=== PATIENT | male | born 1960 | race Caucasian/White ===

== ENCOUNTER 2017-02-18 09:10 | Inpatient (IN) | payer OTHER ==
--- NOTE | ~2017-02-18 | CT4 ---
[facility]. [facility] A Service of [facility] RADIOLOGY TEXT RESULTS PATIENT: DIANA OAKLEY LOCATION: [facility] 230-01 : [birth year] UNIT #: [id number] AGE: [address]: Danilo Mccray SEX: M ORDER DR: [id number] [address] [address] [id number] E MR#: [id number] Acc #: [id number] NAME: DIANA OAKLEY : 1960 SEX: M STUDY DATE/TIME: 02/18/2017 10:31 UNIT: SED ROOM: STUDY DESCRIPTION: CT Abd and Pelv Wo Cont Attending Physician: Jose Crowell M.D. Ordering Physician: Jose Crowell M.D. Primary Care Physician: Sina Rees Jr., M.D. MEDICAL IMAGING REPORT This report is preliminary unless electronic signature is present. REVISED REPORT SEE ADDENDUM EXAM CT abdomen and pelvis without IV contrast COMPARISON None INDICATIONS 56-year-old male with right-sided abdominal pain in the upper and lower quadrants since yesterday. FINDINGS Axial CT imaging of the abdomen and pelvis was performed without IV contrast. Lack of IV contrast limits evaluation of adenopathy, vasculature, and viscera. Coronal and sagittal reformats were constructed. The CT exam was performed with one or more of the following radiation dose reduction techniques: automatic exposure control, adjustment of mA and/or kV according to patient size, and iterative reconstruction. Small fat-containing inguinal herniae bilaterally, left greater than right. Mild degenerative facet disease bilaterally L5-S1. There are bilateral pars defects at L5 with associated grade 1 anterolisthesis of L5 on S1 of approximately 3 mm. There is severe disc height loss at this level and there is also a small posterior disc protrusion at this level. Dependent atelectasis in both lower lobes. Minimal band-like atelectasis in the right middle lobe. No acute findings in the lower chest. Unenhanced liver, pancreas, spleen, adrenal glands, and kidneys are within STS. [facility] A Service of [facility] RADIOLOGY TEXT RESULTS PATIENT: DIANA OAKLEY LOCATION: [facility] 230-01 : 62 UNIT #: [id number] AGE: [address]: Danilo Mccray SEX: M ORDER DR: normal limits. No hydronephrosis or hydroureter. No renal or ureteral calculus. There is mild prominence of the urinary bladder wall diffusely. No adjacent inflammatory change. Normal appearance and size of the prostate gland. There is diffuse diverticulosis of the colon. There is a fairly long segment of fat stranding involving the right colon seen from the cecum to the hepatic flexure, where multiple diverticula are seen. There is fat stranding in the right pericolic gutter. Interestingly the appendix also appears to have diverticula. No evidence of acute appendicitis. No pneumoperitoneum. Cholelithiasis without evidence of acute cholecystitis. Normal biliary caliber. No adenopathy. Normal caliber of the abdominal aorta. IMPRESSION 1. There is a long segment indistinctness and adjacent fat stranding involving the right colon. Multiple diverticula are seen in this location. This is most consistent with acute relatively long segment diverticulitis. Other colitis could give similar appearance. 2 Interesting there are multiple diverticula of the appendix without evidence of acute diverticulitis or mass lesion of the appendix. 3. Pars defects bilaterally L5 with associated grade 1 anterolisthesis and degenerative disc disease L5-S1. There is a small posterior disc protrusion at this level. 4. Mild diffuse prominence of urinary bladder wall, perhaps due to under distension. Correlation to exclude signs of acute cystitis recommended. 5. Cholelithiasis without evidence of acute cholecystitis. 6. Small fat-containing inguinal herniae bilaterally. Dictated by... Porfirio Matthews TD: 02/18/2017 14:51 JOB #: [id number] ADDENDUM: Literature states that appendiceal diverticulosis can contribute to the development of appendiceal carcinoma. Given this, nonemergent surgical consultation is recommended to consider prophylactic appendectomy. Dictated by... Porfirio Matthews [facility] A Service of [facility] RADIOLOGY TEXT RESULTS PATIENT: DIANA OAKLEY LOCATION: [facility] 230-01 : [birth year] UNIT #: [id number] AGE: [address]: Danilo Mccray SEX: M ORDER DR: TD: 02/18/2017 14:44 JOB #: [id number] ADDENDUM Also given the fat stranding along the right colon to the base of the appendix, imaging followup is recommended to ensure resolution. JOB: [id number] Dictated by... Judd Arita M.D. THIS IS AN ELECTRONICALLY VERIFIED REPORT Judd Arita M.D. at 03/02/2017 2:40 PM BLM/pcl TD: 02/18/2017 14:46 JOB #: [id number] CC: Terell/invision Please Delete MEDICAL IMAGING REPORT Page 1 of 1
--- NOTE | ~2017-02-18 | CT71 ---
[facility] A Service of [facility] RADIOLOGY TEXT RESULTS PATIENT: DIANA OAKLEY LOCATION: [facility] 230-01 : [birth year] UNIT #: [id number] AGE: [address]: Danilo Mccray SEX: M ORDER DR: [id number] [address] [address] [id number] E MR#: [id number] Acc #: [id number] NAME: DIANA OAKLEY : 1960 SEX: M STUDY DATE/TIME: 02/18/2017 10:27 UNIT: SED ROOM: STUDY DESCRIPTION: CT Head Wo Contrast Attending Physician: Jose Crowell M.D. Ordering Physician: Jose Crowell M.D. Primary Care Physician: Sina Rees Jr., M.D. MEDICAL IMAGING REPORT This report is preliminary unless electronic signature is present. EXAM CT head without IV contrast COMPARISON None INDICATIONS 56-year-old male with dizziness and headache for 3 days. Patient reports remote head injury. The CT exam was performed with one or more of the following radiation dose reduction techniques: automatic exposure control, adjustment of mA and/or kV according to patient size, and iterative reconstruction. FINDINGS Minimal cerumen right external ear canal. Mastoid air cells, middle ears, visualized paranasal sinuses are well-aerated. No acute fractures or suspicious osseous lesions. No abnormal extraaxial fluid collection or mass effect. Normal cerebral volume. No acute intracranial hemorrhage. No evidence of acute ischemia. There is rounded CSF containing structure in the midline posterior fossa measuring up to 2.2 cm, possibly representing an arachnoid cyst. IMPRESSION 1. No acute abnormality. 2. 2.2 cm fluid-containing structure in the midline posterior fossa, possibly representing an arachnoid cyst. Dictated by... Judd Arita M.D. THIS IS AN ELECTRONICALLY VERIFIED REPORT Judd Arita M.D. at 02/25/2017 12:33 PM [facility] A Service of [facility] RADIOLOGY TEXT RESULTS PATIENT: DIANA OAKLEY [id number] 62 UNIT #: [id number] AGE: [address]: Danilo Mccray SEX: M ORDER DR: Petey TD: 02/18/2017 14:41 JOB #: [id number] MEDICAL IMAGING REPORT Page 1 of 1
--- NOTE | ~2017-02-18 | DS ---
Unit #: [id number] #: [id number] Patient: DIANA OAKLEY [id number] [place] [address] [id number] I MR#: [id number] NAME: DIANA OAKLEY ROOM: 230 Age: 56 Sex: M Admission Date: 02/18/2017 : 1960 Discharge Date: 02/22/2017 Attending Physician: Danilo Mccray M.D. Primary Care Physician: Sina Rees Jr., M.D. DISCHARGE SUMMARY ADMITTING DIAGNOSIS Diverticulitis. DISCHARGE DIAGNOSIS Diverticulitis. ADMITTING PHYSICIAN Danilo Mccray M.D. CONSULTATIONS None. PROCEDURES PERFORMED None. BRIEF HOSPITAL COURSE This is a 56-year-old gentleman who was transferred to [facility]. Our service was initially told that he had appendicitis. However once he arrived, after reviewing his CT scan he had right-sided diverticulitis. He was started on antibiotics and did improve daily. Prior to discharge his pain had resolved and he was afebrile. He was tolerating a low residue diet. DISPOSITION Discharge to home. MEDICATIONS He was given a script for Levaquin and Flagyl. DISCHARGE INSTRUCTIONS 1. I will have my office contact him to schedule colonoscopy within the next few weeks. 2. He has been instructed to return to the office or ER if his symptoms return or worsen. Dictated by... Rickey Ayala III, M.D. Unit #: [id number] #: [id number] Patient: DIANA OAKLEY VCL/kylah TD: 02/24/2017 21:12 JOB #: [id number] DISCHARGE SUMMARY Page 1 of 1 X Rickey Ayala III, MD DISCHARGE SUMMARY
--- NOTE | ~2017-02-18 | CO ---
Unit #: [id number] #: [id number] Patient: DIANA OAKLEY [id number] [place], [place] [address] [id number] I MR#: [id number] NAME: DIANA OAKLEY ROOM: 230 Age: 56 Sex: M Admission Date: 02/18/2017 : 1960 Attending Physician: Danilo Mccray M.D. Primary Care Physician: Sina Rees Jr., M.D. Consultation Date: 02/18/2017 CONSULTATION REPORT PRIMARY REASON FOR CONSULTATION Diverticulitis. HISTORY OF PRESENT ILLNESS The patient is a 56-year-old gentleman, who presented to the [facility] Emergency Room with about a 24-hour history of right-sided abdominal pain. He has not had any previous such symptoms. He was complaining of a headache and also he does have a history of renal stones, but this pain feels different what that was. The pain is moderately severe. He denies any fevers or chills. REVIEW OF SYSTEMS A 10-point review is performed. This is negative other than what was already listed in the history of present illness. PAST MEDICAL HISTORY As above, he has a history of a splenic rupture, which was treated nonoperatively in the past. He has had no previous abdominal surgeries. MEDICATIONS See his MAR. ALLERGIES He has no known medical allergies. SOCIAL HISTORY He denies alcohol or tobacco abuse. FAMILY HISTORY Noncontributory. PHYSICAL EXAMINATION GENERAL: The patient is alert, in no apparent distress. VITAL SIGNS: Temperature 99.5, respirations are 18, heart rate 93, and blood pressure 143/94. HEENT: Pupils are equal and round. Extraocular motions are intact. NECK: Supple without adenopathy. HEART: Regular rate and rhythm. LUNGS: Clear to auscultation anteriorly. ABDOMEN: Soft. Tender in the right side, mostly right lower quadrant. There is no guarding or rebound. No masses appreciable. EXTREMITIES: Negative for clubbing, cyanosis, or edema. NEUROLOGIC: Negative focal, sensory or motor deficits. SKIN: Warm and dry. Unit #: [id number] #: [id number] Patient: DIANA OAKLEY LABORATORY DATA Significant for white blood cell count of 14.5, and hemoglobin 13.4. A CT scan was read as a long segment of inflammation of the right colon with multiple diverticula consisting with acute diverticulitis versus colitis. He also has incidental gallstones as well. ASSESSMENT AND PLAN The patient with long segment diverticulitis. Of note, as when I was called from the emergency room at [facility]. I was told this patient did have an appendicitis, which is clearly not the case. We will treat the patient nonoperatively with IV antibiotics. Dictated by... Porfirio Hurtado/miguel TD: 02/19/2017 13:18 JOB #: [id number] CONSULTATION REPORT Page 1 of 1 X Danilo Mccray X CONSULTATION REPORT
[~2017-02-18 09:10] MED LIST: BENICAR PO
[2017-02-18] MEDS ORDERED: PAIN MEDICATION (09:20)
[2017-02-18 10:24] LABS: BASOPHIL% 0.1 % (0-2.5); HEMATOCRIT 39.2 % (38.0-50.0); HEMOGLOBIN 13.4 gm/dL (13.0-16.0); LYMPHOCYTE# 1.2 X10e3 (1.0-3.5); LYMPHOCYTE% 8.2 % (17.0-45.0); MEAN CELL VOLUME 92.4 FL (83-96); MEAN CORPUSCULAR HEMOGLOBIN 31.6 PG (28-34); MEAN CORPUSCULAR HGB CONC 34.2 g/dL (30-36); MEAN PLATELET VOLUME 8.3 FL (6.5-11.5); MONOCYTE# 0.9 X10e3 (0-1.0); MONOCYTE% 5.9 % (3.0-12.0); NEUTROPHIL# 12.5 X10e3 (1.5-7.1); NEUTROPHIL% 85.8 % (40-75); PLATELET COUNT 130 X10e3 (140-420); RED BLOOD COUNT 4.24 X10e (3.90-5.60); RED CELL DISTRIBUTION WIDTH 12.4 % (11.0-15.5); WHITE BLOOD COUNT 14.5 X10e3 (4.0-10.5)
[2017-02-18 10:26] LABS: DIFF IND NO
[2017-02-18 10:36] LABS: BILIRUBIN, DIRECT 0.2 mg/dL (0.0-0.2); BILIRUBIN,INDIRECT 1.1 mg/dL (0.0-0.9); BILIRUBIN,TOTAL 1.3 mg/dL (0.2-2.0); BUN/CREATININE RATIO 12.5; CALCIUM SERUM 9.1 mg/dL (8.4-10.2); CREATININE SERUM 0.8 mg/dL (0.6-1.4); GLOM FILT RATE Estimated 100.6 mL/min (>60); PROTEIN TOTAL SERUM 7.7 g/dL (6.0-8.3)
[2017-02-18 10:49] LABS: URINE SOURCE CLEAN CATCH
[2017-02-18 10:52] LABS: MICRO INDICATED? YES; URINE APPEARANCE CLEAR; URINE BILIRUBIN NEG (NEG); URINE BLOOD NEG (NEG); URINE COLOR YELLOW; URINE GLUCOSE NEG (NORM); URINE KETONE NEG (NEG); URINE LEUKOCYTE ESTERASE NEG (NEG); URINE NITRATE NEG (NEG); URINE PROTEIN TRACE (NEG)
[2017-02-18 10:59] LABS: CULTURE INDICATED? NO; URINE BACTERIA NEG (NEG); URINE RBC 0-2 /[HPF] (0-2); URINE WBC 0-2 /[HPF] (0-5)
[2017-02-18 11:02] LABS: AMPHETAMINE NEG (NEG); BARBITURATES NEG (NEG); BENZODIAZEPINES NEG (NEG); COCAINE NEG (NEG); MARIJUANA NEG (NEG); OPIATES POS (NEG); TRICYCLIC ANTIDEPRESSANTS NEG (NEG); U METHADONE NEG (NEG)
[2017-02-19 05:32] LABS: HEMATOCRIT 37.5 % (38.0-50.0); HEMOGLOBIN 12.8 gm/dL (13.0-16.0); MEAN CELL VOLUME 93.1 FL (83-96); MEAN CORPUSCULAR HEMOGLOBIN 31.7 PG (28-34); MEAN PLATELET VOLUME 8.6 FL (6.5-11.5); RED BLOOD COUNT 4.02 X10e (3.90-5.60); RED CELL DISTRIBUTION WIDTH 12.4 % (11.0-15.5); WHITE BLOOD COUNT 12.5 X10e3 (4.0-10.5)
[2017-02-19 06:37] LABS: BUN/CREATININE RATIO 6.66; CALCIUM SERUM 8.5 mg/dL (8.4-10.2); CREATININE SERUM 0.9 mg/dL (0.6-1.4); GLOM FILT RATE Estimated 95.8 mL/min (>60)
[2017-02-20 05:50] LABS: BASOPHIL% 0.2 % (0-2.5); EOSINOPHIL# 0.1 X10e3 (0-0.7); HEMATOCRIT 35.3 % (38.0-50.0); LYMPHOCYTE# 0.8 X10e3 (1.0-3.5); LYMPHOCYTE% 11.1 % (17.0-45.0); MEAN CELL VOLUME 92.4 FL (83-96); MEAN CORPUSCULAR HEMOGLOBIN 31.5 PG (28-34); MEAN PLATELET VOLUME 8.5 FL (6.5-11.5); MONOCYTE# 0.4 X10e3 (0-1.0); MONOCYTE% 5.2 % (3.0-12.0); NEUTROPHIL# 6.2 X10e3 (1.5-7.1); NEUTROPHIL% 82.5 % (40-75); PLATELET COUNT 126 X10e3 (140-420); RED BLOOD COUNT 3.82 X10e (3.90-5.60); RED CELL DISTRIBUTION WIDTH 12.2 % (11.0-15.5); WHITE BLOOD COUNT 7.5 X10e3 (4.0-10.5)
[2017-02-20 06:00] LABS: DIFF IND NO
[2017-02-21 05:46] LABS: HEMATOCRIT 36.5 % (38.0-50.0); HEMOGLOBIN 12.7 gm/dL (13.0-16.0); MEAN CELL VOLUME 91.4 FL (83-96); MEAN CORPUSCULAR HEMOGLOBIN 31.8 PG (28-34); MEAN CORPUSCULAR HGB CONC 34.7 g/dL (30-36); MEAN PLATELET VOLUME 8.3 FL (6.5-11.5); RED BLOOD COUNT 3.99 X10e (3.90-5.60); RED CELL DISTRIBUTION WIDTH 12.6 % (11.0-15.5)
[2017-02-22] MEDS ORDERED: FLAGYL PO (07:50)
[2017-02-22] MEDS ORDERED: LEVAQUIN PO (07:51)
[2017-04-18] MEDS ORDERED: LOSARTAN POTASS50 MG PO (10:01)
[2017-04-19] MEDS ORDERED: BAYER CHEWABLE81 MG PO (10:18)
== END 2017-02-22 09:51 | disposition home or self-care (01) | DRG 392 ==
LOC: SED 09:10 → C2A 11:38 → SED 11:38 → C2A 11:38 → CEDOF 11:38 → SED 12:23 → C2A 12:23 → CEDOF 15:45 → C2A 15:45
PROVIDERS: Emergency Medicine; Surgery
DX: K57.92 Diverticulitis of intestine, part unspecified, without perforation or abscess without bleeding (principal); K52.9 Noninfective gastroenteritis and colitis, unspecified; K80.20 Calculus of gallbladder without cholecystitis without obstruction
CPT/HCPCS: 36415; 70450; 74176; 80048; 80076; 80307; 81003; 85025; 85027; 96365; 96374; 96375; 99285; J1170; J2270; J2405; J2543

== ENCOUNTER → 2017-04-19 | Day surgery (SDC) | payer OTHER ==
[~2017-04-19] MED LIST changes: +BAYER CHEWABLE81 MG PO; +FLAGYL PO; +LEVAQUIN PO; +LOSARTAN POTASS50 MG PO; +PAIN MEDICATION
--- NOTE | ~2017-04-19 | OR ---
Unit #: [id number] #: [id number] Patient: DIANA OAKLEY [id number] [address] [id number] MR#: [id number] NAME: DIANA OAKLEY ROOM: Date of Procedure: 04/19/2017 Admission Date: 04/19/2017 Surgeon: Rickey Ayala III, M.D. : 1960 Attending Physician: Rickey Ayala III, M.D. Primary Care Physician: Dilip Gar M.D. OPERATIVE REPORT PREOPERATIVE DIAGNOSES Reflux, epigastric pain and history of diverticulitis. POSTOPERATIVE DIAGNOSES Reflux, epigastric pain and history of diverticulitis with findings of small hiatal hernia, mild esophagitis, mild gastritis, right-sided colonic diverticulitis and small rectal polyp. PROCEDURES PERFORMED Esophagogastroduodenoscopy with biopsy and colonoscopy to cecum with cold biopsy. ANESTHESIA MAC. SPECIMENS Antrum was sent for TINA and for path as well as distal GE junction was biopsied as well as a rectal polyp. COMPLICATIONS None apparent. INDICATIONS FOR PROCEDURE This is a 56-year-old gentleman, who was recently admitted with abdominal pain. He had diverticulitis on the CT scan. He has also been having some chronic reflux and epigastric pain. He is here today for upper and lower endoscopy. DESCRIPTION OF PROCEDURE After consent was obtained, the patient was brought to the endoscopy suite and placed in the left lateral decubitus position. We titrated the above sedation and I passed an EGD scope easily into the esophagus under direct visualization. He had normal peristalsis. No evidence of any erosions, but did have some mild esophagitis. There was also a small hiatal hernia. He also had some mild gastritis near the antrum. The pylorus was patent and the first and second portions of the duodenum appeared normal. I then took a biopsy of the antrum for TINA testing as well as took associate financial representative biopsy of the area of gastritis to send for pathology. Also took biopsies at 35 cm at the distal esophagus at the GE junction to evaluate his esophagitis. The scope was retroflexed within the cardia and again, the small hiatal hernia was seen. The scope was then straightened and carefully withdrawn. I then performed a rectal exam and did not feel any Unit #: [id number] #: [id number] Patient: DIANA OAKLEY. The scope was placed within the rectal vault. Air was insufflated. I navigated the scope all the way to the cecum without any difficulty. He had normal mucosa. He did have some moderate right-sided colonic diverticulosis. There were no signs of any bleeding. He also had a solitary small hyperplastic appearing rectal polyp at about 10 cm. This was biopsied and sent to pathology. The scope was retroflexed within the rectum. No other masses were seen. The scope was then carefully withdrawn. The patient tolerated the procedure without any problems and returned to the recovery room in stable condition. Dictated by... Rickey Ayala III, M.D. VCL/miguel TD: 04/22/2017 10:52 JOB #: [id number] OPERATIVE REPORT Page 1 of 1 X Rickey Ayala III, MD PROCEDURE OPERATIVE NOTE
== END | disposition home or self-care (01) ==
LOC: COPS 09:48
DX: K63.5 Polyp of colon (principal); K29.50 Unspecified chronic gastritis without bleeding; K20.9 Esophagitis, unspecified; K21.9 Gastro-esophageal reflux disease without esophagitis; K57.30 Diverticulosis of large intestine without perforation or abscess without bleeding; K44.9 Diaphragmatic hernia without obstruction or gangrene; I10 Essential (primary) hypertension; M19.90 Unspecified osteoarthritis, unspecified site; Z79.82 Long term (current) use of aspirin; Z79.899 Other long term (current) drug therapy
CPT/HCPCS: 87077; 88305; 88312; J2250